=== PATIENT | male | born 1975 | race African-American/Black ===

== ENCOUNTER 2016-11-08 11:51 | Emergency (ER) | payer OTHER ==
[~2016-11-08] VITALS: Ht 175.3 cm; Wt 80.0 kg
[~2016-11-08 11:51] MED LIST: FLEXERIL PO; NAPROSYN500 MG PO; PERCOCET 5/325M1 TAB PO
[2016-11-08 13:15] VITALS: BP 138/93
== END 2016-11-08 13:24 | disposition home or self-care (01) | DRG 605 ==
LOC: ED 11:51
DX: S61.317A Laceration without foreign body of left little finger with damage to nail, initial encounter (principal); W26.0XXA Contact with knife, initial encounter; Y93.G1 Activity, food preparation and clean up; Y92.511 Restaurant or cafe as the place of occurrence of the external cause

== ENCOUNTER 2016-11-10 12:02 | Emergency (ER) | payer OTHER ==
[~2016-11-10] VITALS: Ht 175.3 cm; Wt 120.0 kg
[2016-11-10 13:02] VITALS: BP 142/97
== END 2016-11-10 13:02 | disposition left against medical advice (07) | DRG 951 ==
LOC: ED 12:02 → LWOBS 13:02
DX: Z91.19 Patient's noncompliance with other medical treatment and regimen (principal)

== ENCOUNTER 2016-11-10 15:56 | Emergency (ER) | payer OTHER ==
[~2016-11-10] VITALS: Ht 175.3 cm; Wt 130.0 kg
[2016-11-10 16:30] VITALS: BP 132/88
== END 2016-11-10 16:32 | disposition home or self-care (01) | DRG 950 ==
LOC: ED 15:56
DX: S61.211D Laceration without foreign body of left index finger without damage to nail, subsequent encounter (principal); F17.290 Nicotine dependence, other tobacco product, uncomplicated; W45.8XXD Other foreign body or object entering through skin, subsequent encounter

== ENCOUNTER 2016-11-17 11:13 | Emergency (ER) | payer OTHER ==
[~2016-11-17] VITALS: Ht 175.3 cm; Wt 120.0 kg
[2016-11-17] MEDS ORDERED: KEFLEX500 MG PO (11:27)
[2016-11-17 11:34] VITALS: BP 124/82
== END 2016-11-17 11:45 | disposition home or self-care (01) | DRG 605 ==
LOC: ED 11:13
PROC: 0HQGXZZ Repair Left Hand Skin, External Approach (ICD-10-PCS; principal; 2016-11-17)
DX: S61.412A Laceration without foreign body of left hand, initial encounter (principal); W27.8XXA Contact with other nonpowered hand tool, initial encounter; Y93.G1 Activity, food preparation and clean up; Y92.89 Other specified places as the place of occurrence of the external cause

== ENCOUNTER 2019-08-21 | Emergency (ER) | payer OTHER ==
[~2019-08-21] MED LIST changes: +KEFLEX500 MG PO
[2019-08-21] MEDS ORDERED: INDOMETHACIN50 MG PO (20:05)
== END 2019-08-21 20:40 | disposition home or self-care (01) ==
DX: S93.501A Unspecified sprain of right great toe, initial encounter (principal); M10.071 Idiopathic gout, right ankle and foot; F17.210 Nicotine dependence, cigarettes, uncomplicated; X58.XXXA Exposure to other specified factors, initial encounter

== ENCOUNTER 2024-05-31 16:09 | Emergency (ER) | payer OTHER ==
[~2024-05-31] VITALS: Ht 172.7 cm; Wt 113.0 kg
[~2024-05-31 16:09] MED LIST changes: +INDOMETHACIN50 MG PO; +TERBINAFINE HY250 MG PO
[2024-05-31] MEDS ORDERED: KETOROLAC TROMETHAMINE 30 MG/ML SDV IM ONE (18:25)
[2024-05-31] MEDS ORDERED: INDOMETHACIN50 MG PO (18:39)
[2024-05-31] MEDS ORDERED: COLCHICINE 0.6 MG/TAB PO ONE ×2 (18:40)
[2024-05-31 18:46] VITALS: BP 133/81
== END 2024-05-31 18:53 | disposition home or self-care (01) | DRG 554 ==
LOC: ED 16:09
DX: M10.072 Idiopathic gout, left ankle and foot (principal); F17.200 Nicotine dependence, unspecified, uncomplicated

== ENCOUNTER 2024-06-15 23:48 | Emergency (ER) | payer OTHER ==
[~2024-06-15] VITALS: Ht 172.7 cm; Wt 113.0 kg
[2024-06-16] MEDS ORDERED: KETOROLAC TROMETHAMINE 30 MG/ML SDV IM ONE (00:05)
[2024-06-16] MEDS ORDERED: DEXAMETHASONE SOD. PHOSPHATE 10 MG/ML VIAL IM ONE (00:05)
[2024-06-16] MEDS ORDERED: COLCHICINE 0.6 MG/TAB PO ONE (00:10)
[2024-06-16] MEDS ORDERED: PERCOCET 5/325M1 TAB PO (00:42)
[2024-06-16] MEDS ORDERED: DECADRON4 MG PO (00:42)
[2024-06-16] MEDS ORDERED: COLCHICINE0.6 M2 PO (00:42)
[2024-06-16 01:10] VITALS: BP 142/86
== END 2024-06-16 01:10 | disposition home or self-care (01) | DRG 554 ==
LOC: ED 23:48
DX: M10.072 Idiopathic gout, left ankle and foot (principal); F17.200 Nicotine dependence, unspecified, uncomplicated
CPT/HCPCS: J1100

== ENCOUNTER 2024-06-23 12:32 | Emergency (ER) | payer OTHER ==
[~2024-06-23] VITALS: Ht 172.7 cm; Wt 115.0 kg
[~2024-06-23 12:32] MED LIST changes: +COLCHICINE0.6 M2 PO; +DECADRON4 MG PO
[2024-06-23 12:42] VITALS: BP 132/87
[2024-06-23 13:01] VITALS: BP 117/72
[2024-06-23 13:31] VITALS: BP 121/72
[2024-06-23] MEDS ORDERED: VENTOLIN HFA108 MCG IN (13:52)
[2024-06-23] MEDS ORDERED: PREDNISONE50 MG PO (13:52)
[2024-06-23] MEDS ORDERED: PROMETHAZINE DM1 SOL PO (13:52)
[2024-06-23 14:01] VITALS: BP 131/84
== END 2024-06-23 14:07 | disposition home or self-care (01) | DRG 153 ==
LOC: ED 12:32
DX: J06.9 Acute upper respiratory infection, unspecified (principal); Z20.822 Contact with and (suspected) exposure to COVID-19